=== PATIENT | female | born 1990 | race Asian ===

== ENCOUNTER 2016-12-06 12:36 | Day surgery (SDC) | payer OTHER ==
[~2016-12-06 12:36] MED LIST: ALBUTEROL0.083 % IN; CALCIUM CA PO; CLONAZEP ODT0.25 MG PEG; CLONAZEP ODT0.25 MG PO; IPRASOL5 IN; KEPPRA750 MG PO; LEVE500T5 PO; LEVETIRACET100 MG/ML PO; LORA10SY PEG; LORATADINE5 MG/5 M3 PO; LYRICA150 MG PO; PHENOBARB20 MG/5 ML PO; PHENOBARB32.4 MG PO; ROBINUL1 MG PEG; ROBINUL1 MG PO; SCOP1.5D TD
== END 2016-12-06 15:00 | disposition home or self-care (01) ==
LOC: OR 12:36
PROC: 05H433Z Insertion of Infusion Device into Left Innominate Vein, Percutaneous Approach (ICD-10-PCS; principal; 2016-12-06)
DX: Z53.8 Procedure and treatment not carried out for other reasons (principal); I87.2 Venous insufficiency (chronic) (peripheral)
CPT/HCPCS: J3490

== ENCOUNTER 2016-12-10 21:51 | Outpatient (CLI) | payer OTHER ==
[~2016-12-10] VITALS: Ht 121.9 cm; Wt 30.8 kg
[2016-12-10 13:00] VITALS: BP 111/78; TEMP 98.2
== END 2016-12-11 19:41 | disposition home or self-care (01) ==
LOC: INF 21:51
DX: R84.5 Abnormal microbiological findings in specimens from respiratory organs and thorax (principal)
CPT/HCPCS: 80170; 96365; 96375; J1580

== ENCOUNTER 2016-12-11 10:15 | Outpatient (CLI) | payer OTHER ==
[~2016-12-11] VITALS: Ht 121.9 cm; Wt 30.8 kg
[2016-12-11 10:25] VITALS: BP 155/97; TEMP 98.3
[2016-12-11 12:00] VITALS: BP 142/97; TEMP 98.3
== END 2016-12-11 12:05 | disposition home or self-care (01) ==
LOC: INF 10:15
DX: R84.5 Abnormal microbiological findings in specimens from respiratory organs and thorax (principal)
CPT/HCPCS: 96365; 96375; J1580; J1642

== ENCOUNTER 2016-12-12 10:29 | Observation (INO) | payer OTHER ==
[~2016-12-12] VITALS: Ht 114.3 cm; Wt 29.6 kg
[2016-12-12 12:00] VITALS: BP 107/65; TEMP 98.9
[2016-12-12 13:57] LABS: PLATELET COUNT 228 K/uL (152-353)
[2016-12-12 14:04] LABS: POTASSIUM 2.8 mmol/L (3.6-5.2); SODIUM 137 mmol/L (136-145)
[2016-12-12 14:08] VITALS: BP 107/65; TEMP 98.9; Ht 114.3 cm; Wt 29.6 kg
--- NOTE | 2016-12-12 14:30 | NUR ---
SPOKE WITH DR DAS REGARDING LAB RESULTS AND REINFORMED HER OF PICC LINE NOT IN PLACE. MD UPSET NOTHING DONE ON PT STATED THAT LINE WAS IN PLACE YESTERDAY. STATED TO GET SOMEONE IN THERE STAT REGARDING CHECKING LINE PLACEMENT AND ASSESS FUNCTIONALITY.
--- NOTE | 2016-12-12 15:00 | NUR ---
DARLENE POLANCO RN AND FAINA SARGENT RN TOOK TAPE AND SECURE OF LINE OFF OF R PICC. LINE OBSERVED KINKED. LINE ABLE TO FLOAT INTO VEIN EASILY WITH POSITIVE BLOOD RETURN OBTAINED. DARLENE POLANCO RN CALLED DR DAS AT BEDSIDE AND NOTIFIED HER OF PICC LINE IN PLACE WITH POSITIVE BLOOD RETURN. XRAY TO BE TAKEN TO CHECK PLACEMENT.
--- NOTE | 2016-12-12 15:20 | NUR ---
PHARMACY NOTIFIED OF [place] ORDER FOR PHARMACY TO DOSE.
[2016-12-12 16:00] VITALS: BP 107/65; TEMP 98.8
[2016-12-12 20:15] VITALS: BP 74/41; TEMP 98.4
--- NOTE | 2016-12-12 21:30 | NUR ---
RECEIVED CHEST XRAY RESULTS FOR PICC LINE PLACEMENT. XRAY RESULTS STATE THAT PICC LINE PLACEMENT NEEDS TO BE ADJUSTED.
--- NOTE | 2016-12-12 21:39 | NUR ---
DR. DAS NOTIFIED AT THIS TIME OF XRAY RESULTS FOR PICC LINE PLACEMENT CHECK
--- NOTE | 2016-12-12 21:45 | NUR ---
NOTIFIED RADIOLOGY FOR CLARIFICATION OF XRAY RESULTS
--- NOTE | 2016-12-12 22:46 | NUR ---
RADIOLOGY CALLED AND STATED THAT PICC PLACEMENT WAS OKAY FOR USE THAT PT COULD BE RESTARTED ON FLUIDS. PT STARTED BACK ON FLUIDS AT THIS TIME.
[2016-12-13 00:06] VITALS: BP 93/61; TEMP 98.1
[2016-12-13 04:00] VITALS: BP 87/46; TEMP 98
[2016-12-13 07:52] VITALS: BP 89/47; TEMP 97.9
[2016-12-13 10:30] LABS: PLATELET COUNT 209 K/uL (152-353)
[2016-12-13 10:36] LABS: POTASSIUM 3.3 mmol/L (3.6-5.2); SODIUM 137 mmol/L (136-145)
[2016-12-13 12:00] VITALS: BP 91/52; TEMP 97.6
--- NOTE | 2016-12-13 13:08 | NUR ---
MOTHER MAINTAINS PEG FEEDINGS.
--- NOTE | 2016-12-13 13:23 | NUR ---
MOTHER AT BS. NAD NOTED.
[2016-12-13 16:00] VITALS: BP 108/63; TEMP 98
--- NOTE | 2016-12-13 19:30 | NUR ---
PATIENT IS IN BED AWAKE AT THIS TIME. ASSESSMENT COMPLETED. NO ONE AT THE BEDSIDE. PICC LINE ASSESSED PATENT INFUSING FLUIDS WITH NO S/S OF INFILTRATION. BED LOCKED AND IN LOW POSITION, SIDE RAILS UP X2, CALL EU[facility]KS WITHIN REACH.
[2016-12-13 20:00] VITALS: BP 90/44; TEMP 97.9
[2016-12-14 00:28] VITALS: BP 105/59; TEMP 98.4
[2016-12-14 04:00] VITALS: BP 106/65; TEMP 97.6
[2016-12-14 08:00] VITALS: BP 129/79; TEMP 97.9
[2016-12-14 09:34] LABS: POTASSIUM 4.8 mmol/L (3.6-5.2); SODIUM 135 mmol/L (136-145)
[2016-12-14 10:41] LABS: PLATELET COUNT 229 K/uL (152-353)
[2016-12-14 12:00] VITALS: BP 129/85; TEMP 97.8
--- NOTE | 2016-12-14 12:37 | NUR ---
MOTHER MAINTAINS FEEDINGS. PT TOLERATING WELL.
[2016-12-14 16:00] VITALS: BP 132/75; TEMP 98.9
[2016-12-14 20:00] VITALS: BP 128/57; TEMP 100.3
[2016-12-15] VITALS: BP 118/64; TEMP 99.3
[2016-12-15 04:00] VITALS: BP 119/65; TEMP 98.8
[2016-12-15 08:00] VITALS: BP 134/85; TEMP 99.1
[2016-12-15 12:00] VITALS: BP 130/75; TEMP 98.8
--- NOTE | 2016-12-15 15:26 | NUR ---
1450-MOTHER GIVEN D/C INSTRUCTIONS AND SHE VERBALIZES UNDERSTANDING. PT TO BE D/C'D WHEN ABX FINISHES INFUSING.
--- NOTE | 2016-12-15 15:48 | NUR ---
PT'S FLUIDS DISCONNECTED FROM PICC LINE. PICC LINE FLUSHED WITH 10ML OF NS AND CLAMMPED. SITE STILL WRAPPED WITH DELMA. PT OUT VIA W/C PER MOTHER WITH NAD. MOTHER INSTRUCTED TO BRING PT BACK TOMORROW AROUND 1500 FOR INFUSION.
== END 2016-12-15 16:20 | disposition home or self-care (01) ==
LOC: MED/SURG 10:29
PROVIDERS: ADMIT Family Medicine
PROC: 05H533Z Insertion of Infusion Device into Right Subclavian Vein, Percutaneous Approach (ICD-10-PCS; principal; 2016-12-12)
DX: J18.8 Other pneumonia, unspecified organism (principal); R50.9 Fever, unspecified; G80.8 Other cerebral palsy; D64.89 Other specified anemias; R00.0 Tachycardia, unspecified
CPT/HCPCS: 36415; 80053; 80170; 83735; 85027; 87040; 87077; 87185; 87186; 87205; 87804; 93005; 94640; 94664; 94760; 96365; 96366; 96367; 96375; 99220; G0378; G0379; J1580; J1642; J2185

== ENCOUNTER 2016-12-21 13:39 | Outpatient (CLI) | payer OTHER | END 2016-12-21 14:05 | disposition home or self-care (01) | LOC: INF 13:39 | DX: J15.1 Pneumonia due to Pseudomonas (principal) | CPT/HCPCS: 36589; 87070 ==

== ENCOUNTER 2017-02-12 21:53 | Emergency (ER) | payer OTHER ==
[~2017-02-12] VITALS: Ht 121.9 cm; Wt 30.8 kg
[2017-02-12] MEDS ORDERED: FERR220E6 PEG (22:20)
[2017-02-12 23:26] LABS: PLATELET COUNT 274 K/uL (152-353)
[2017-02-13 00:46] VITALS: BP 120/74
[2017-02-13] MEDS ORDERED: MIRALAX3350 N1 PEG (15:53)
== END 2017-02-13 00:48 | disposition home or self-care (01) ==
LOC: ED 21:53
DX: J69.0 Pneumonitis due to inhalation of food and vomit (principal); J02.0 Streptococcal pharyngitis; R07.89 Other chest pain
CPT/HCPCS: 36415; 85027; 87040; 87804; 87880; 96365; 99284; J0696

== ENCOUNTER 2017-02-13 10:18 | Inpatient (IN) | payer OTHER ==
[~2017-02-13] VITALS: Ht 121.9 cm; Wt 31.8 kg
[~2017-02-13 10:18] MED LIST changes: +FERR220E6 PEG
[2017-02-13 11:21] VITALS: BP 119/76; TEMP 97.7; Ht 121.9 cm; Wt 31.8 kg
[2017-02-13 12:00] VITALS: BP 119/76; BP 92/56; TEMP 96.8; TEMP 97.7
[2017-02-13] MEDS ORDERED: MIRALAX3350 N1 PEG (15:53)
[2017-02-13 16:00] VITALS: BP 92/56; TEMP 96.8
[2017-02-13 16:31] LABS: PLATELET COUNT 214 K/uL (152-353)
[2017-02-13 17:04] LABS: POTASSIUM 4.9 mmol/L (3.6-5.2); SODIUM 133 mmol/L (136-145)
[2017-02-13 20:00] VITALS: BP 95/61; TEMP 97.6
[2017-02-14 00:12] VITALS: BP 126/98; TEMP 97.8
[2017-02-14 04:00] VITALS: BP 85/57; TEMP 97.6
[2017-02-14 06:47] LABS: PLATELET COUNT 178 K/uL (152-353)
[2017-02-14 07:31] LABS: POTASSIUM 3.9 mmol/L (3.6-5.2); SODIUM 132 mmol/L (136-145)
[2017-02-14 07:56] VITALS: BP 78/42; TEMP 97.8
[2017-02-14 12:00] VITALS: BP 105/50; TEMP 97.6
[2017-02-14 16:00] VITALS: BP 90/49; TEMP 97.9
[2017-02-14 20:20] VITALS: BP 128/75; TEMP 100
[2017-02-15] VITALS: BP 95/63; TEMP 97.5
[2017-02-15 04:00] VITALS: BP 87/54; TEMP 98.3
[2017-02-15 08:11] VITALS: BP 89/50; TEMP 98.7
[2017-02-15 10:08] LABS: PLATELET COUNT 195 K/uL (152-353)
[2017-02-15 10:11] LABS: POTASSIUM 4.2 mmol/L (3.6-5.2); SODIUM 138 mmol/L (136-145)
[2017-02-15 12:00] VITALS: BP 96/62; TEMP 98.6
== END 2017-02-15 13:20 | disposition home or self-care (01) | DRG 179 ==
LOC: MED/SURG 10:18
PROVIDERS: ADMIT Family Medicine
PROC: 05HM33Z Insertion of Infusion Device into Right Internal Jugular Vein, Percutaneous Approach (ICD-10-PCS; principal; 2017-02-13)
PROC: B543ZZA Ultrasonography of Right Jugular Veins, Guidance (ICD-10-PCS; 2017-02-13)
PROC: 05H533Z Insertion of Infusion Device into Right Subclavian Vein, Percutaneous Approach (ICD-10-PCS; 2017-02-14)
DX: J15.1 Pneumonia due to Pseudomonas (principal); I87.8 Other specified disorders of veins; R50.9 Fever, unspecified; J69.0 Pneumonitis due to inhalation of food and vomit; J02.0 Streptococcal pharyngitis; R07.89 Other chest pain
CPT/HCPCS: 36415; 36416; 36571; 80053; 81000; 85027; 87040; 87070; 87077; 87186; 87205; 87804; 87880; 93005; 94640; 94664; 94668; 94760; 96365; 99284; C1768; J0696

== ENCOUNTER 2017-05-18 12:30 | Outpatient (CLI) | payer OTHER ==
[~2017-05-18 12:30] MED LIST changes: +MIRALAX3350 N1 PEG
== END 2017-05-18 19:01 | disposition home or self-care (01) ==
LOC: RAD 12:30
DX: J16.8 Pneumonia due to other specified infectious organisms (principal)

== ENCOUNTER 2017-06-04 23:02 | Inpatient (IN) | payer OTHER ==
[~2017-06-04] VITALS: Ht 121.9 cm; Wt 30.5 kg
[2017-06-04 23:17] VITALS: BP 115/68; TEMP 102.5
[2017-06-05 00:14] LABS: PLATELET COUNT 299 K/uL (152-353)
[2017-06-05 01:36] VITALS: BP 101/59; TEMP 100.2; Ht 121.9 cm; Wt 30.5 kg
[2017-06-05] MEDS ORDERED: FLUTICASONE50 MCG (02:21)
[2017-06-05] MEDS ORDERED: CLON0.5T36 PO (02:22)
[2017-06-05] MEDS ORDERED: RANI75SY3 PO (02:24)
[2017-06-05 04:00] VITALS: BP 100/66; TEMP 97.8
[2017-06-05 08:00] VITALS: BP 90/51; TEMP 96.8
[2017-06-05 12:00] VITALS: BP 105/62; TEMP 97.7
[2017-06-05 12:34] LABS: PLATELET COUNT 189 K/uL (152-353)
[2017-06-05 12:47] LABS: POTASSIUM 2.9 mmol/L (3.6-5.2); SODIUM 136 mmol/L (136-145)
[2017-06-05 16:00] VITALS: BP 115/55; TEMP 97.5
[2017-06-05 20:00] VITALS: BP 91/50; TEMP 98.2
[2017-06-06] VITALS: BP 105/59; TEMP 98.3
[2017-06-06 04:00] VITALS: BP 123/70; TEMP 98.8
[2017-06-06 06:07] LABS: PLATELET COUNT 195 K/uL (152-353)
[2017-06-06 06:35] LABS: POTASSIUM 3.8 mmol/L (3.6-5.2); SODIUM 137 mmol/L (136-145)
[2017-06-06 07:54] VITALS: BP 120/71; TEMP 100.4
[2017-06-06 11:58] VITALS: BP 97/62; TEMP 99.2
[2017-06-06 15:45] VITALS: BP 107/63; TEMP 98.3
[2017-06-06 20:00] VITALS: BP 110/62; TEMP 100.1
[2017-06-07] VITALS: BP 98/55; TEMP 98.7
[2017-06-07 04:00] VITALS: BP 97/61; TEMP 98.5
[2017-06-07 05:45] LABS: PLATELET COUNT 188 K/uL (152-353)
[2017-06-07 05:52] LABS: POTASSIUM 4.2 mmol/L (3.6-5.2); SODIUM 141 mmol/L (136-145)
[2017-06-07 08:00] VITALS: BP 99/55; TEMP 97.9
== END 2017-06-07 11:10 | disposition home or self-care (01) | DRG 871 ==
LOC: ED 23:02 → MED/SURG 06-05 00:25
PROVIDERS: ADMIT Family Medicine
DX: A41.89 Other specified sepsis (principal); J18.8 Other pneumonia, unspecified organism; E46 Unspecified protein-calorie malnutrition; G40.802 Other epilepsy, not intractable, without status epilepticus; J02.0 Streptococcal pharyngitis; G80.8 Other cerebral palsy; M62.49 Contracture of muscle, multiple sites; E87.6 Hypokalemia; M41.80 Other forms of scoliosis, site unspecified
CPT/HCPCS: 36415; 36591; 80053; 83735; 85027; 87880; 94640; 94664; 94668; 94760; 96365; 99284; J0696; J1642; J3480; J3490

== ENCOUNTER 2017-06-17 13:10 | Observation (INO) | payer OTHER ==
[~2017-06-17] VITALS: Ht 121.9 cm; Wt 30.4 kg
[~2017-06-17 13:10] MED LIST changes: +CLON0.5T36 PO; +FLUTICASONE50 MCG; +RANI75SY3 PO
[2017-06-17 17:54] VITALS: BP 148/63; TEMP 98.3; Ht 121.9 cm; Wt 30.4 kg
[2017-06-17 18:24] LABS: PLATELET COUNT 306 K/uL (152-353)
[2017-06-17 18:26] LABS: POTASSIUM 3.1 mmol/L (3.6-5.2); SODIUM 138 mmol/L (136-145)
[2017-06-17] MEDS ORDERED: CLON0.5T36 PO (18:42)
[2017-06-17] MEDS ORDERED: ROBINUL1 MG PEG (18:43)
[2017-06-17] MEDS ORDERED: POLY GLYCOL PEG (18:51)
[2017-06-17 20:07] VITALS: BP 106/69; TEMP 98
[2017-06-18] VITALS: BP 111/68; TEMP 98.3
[2017-06-18 04:00] VITALS: BP 90/46; TEMP 98.1
[2017-06-18 05:21] LABS: PLATELET COUNT 276 K/uL (152-353)
[2017-06-18 05:27] LABS: POTASSIUM 3.2 mmol/L (3.6-5.2); SODIUM 133 mmol/L (136-145)
[2017-06-18 08:00] VITALS: BP 127/68; TEMP 97.1
[2017-06-18 12:00] VITALS: BP 99/59; TEMP 97.6
--- NOTE | 2017-06-18 13:00 | NUR ---
SPOKE WITH DR DAS REGARDING WOUND TO L HIP AND NEW ORDERS GIVEN.
[2017-06-18 16:00] VITALS: BP 110/64; TEMP 97.6
--- NOTE | 2017-06-18 18:30 | NUR ---
PT MOVED TO ROOM 1109 AT THIS TIME DUE TO AIR NOT WORKING IN 1108. RESP ASSISTED. NAD NOTED. FAMILY AT BS
[2017-06-18 19:47] VITALS: BP 132/78; TEMP 98.4
[2017-06-19] VITALS: BP 102/60; TEMP 97.7
[2017-06-19 04:00] VITALS: BP 117/68; TEMP 97.6
[2017-06-19 06:16] LABS: POTASSIUM 3.3 mmol/L (3.6-5.2); SODIUM 135 mmol/L (136-145)
[2017-06-19 06:37] LABS: PLATELET COUNT 270 K/uL (152-353)
[2017-06-19 08:00] VITALS: BP 96/69; TEMP 97.9
--- NOTE | 2017-06-19 14:00 | NUR ---
PORT FLUSHED WITH HEPARIN FLUSH. NEEDLE REMOVED. NO BLEED OBSERVED. PRESSURE APPLIED.
--- NOTE | 2017-06-19 14:10 | NUR ---
DISCHARGE INSTRUCTION SIGNED AND GIVEN. Pt. EXIT OUT FRONT ENTRANCE VIA W/C.
== END 2017-06-19 14:10 | disposition home or self-care (01) ==
LOC: MED/SURG 13:10
PROVIDERS: ADMIT Family Medicine
DX: J18.8 Other pneumonia, unspecified organism (principal); G80.8 Other cerebral palsy; E87.6 Hypokalemia; E83.42 Hypomagnesemia; G40.802 Other epilepsy, not intractable, without status epilepticus; D64.89 Other specified anemias; L89.211 Pressure ulcer of right hip, stage 1
CPT/HCPCS: 36591; 80048; 80053; 83735; 85027; 87040; 93005; 94640; 94664; 94668; 94760; 96365; 96366; 96367; 99220; C1726; G0378; G0379; J1642; J1956; J3475; J3480; J3490

== ENCOUNTER 2017-07-24 12:31 | Observation (INO) | payer OTHER ==
[~2017-07-24] VITALS: Ht 132.1 cm; Wt 32.9 kg
[~2017-07-24 12:31] MED LIST changes: +POLY GLYCOL PEG
[2017-07-24] MEDS ORDERED: RANI75SY3 PO (13:39)
[2017-07-24] MEDS ORDERED: MUPIROCIN2 % EX (13:42)
[2017-07-24 15:17] LABS: PLATELET COUNT 238 K/uL (152-353)
[2017-07-24 15:32] LABS: POTASSIUM 3.4 mmol/L (3.6-5.2); SODIUM 136 mmol/L (136-145)
[2017-07-24 17:03] VITALS: BP 140/92; TEMP 98.9; Ht 132.1 cm; Wt 32.9 kg
[2017-07-24 20:00] VITALS: BP 107/71; TEMP 97.6
[2017-07-25] VITALS: BP 90/55; TEMP 98
[2017-07-25 04:00] VITALS: BP 90/42; TEMP 97.5
[2017-07-25 06:25] LABS: POTASSIUM 2.5 mmol/L (3.6-5.2); SODIUM 137 mmol/L (136-145)
[2017-07-25 06:31] LABS: PLATELET COUNT 173 K/uL (152-353)
[2017-07-25 08:00] VITALS: BP 100/55; TEMP 97.6
[2017-07-25 12:00] VITALS: BP 109/70; TEMP 97.6
[2017-07-25 16:00] VITALS: BP 98/48; TEMP 98.2
[2017-07-25 19:46] VITALS: BP 113/78; TEMP 99
[2017-07-26] VITALS: BP 107/59; TEMP 99
[2017-07-26 04:00] VITALS: BP 121/75; TEMP 97.8
[2017-07-26 05:38] LABS: PLATELET COUNT 209 K/uL (152-353)
[2017-07-26 06:00] LABS: POTASSIUM 3.9 mmol/L (3.6-5.2); SODIUM 140 mmol/L (136-145)
[2017-07-26 08:24] VITALS: BP 101/54; TEMP 97.8
[2017-07-26 12:00] VITALS: BP 166/68; TEMP 99.7
== END 2017-07-26 16:00 | disposition home or self-care (01) ==
LOC: MED/SURG 12:31
PROVIDERS: ADMIT Family Medicine
DX: J15.1 Pneumonia due to Pseudomonas (principal); E86.0 Dehydration; G80.1 Spastic diplegic cerebral palsy; G91.8 Other hydrocephalus
CPT/HCPCS: 36415; 36591; 80053; 85027; 87040; 87070; 87077; 87186; 87205; 94640; 94664; 94668; 94760; 96365; 96366; 96367; 96374; 99220; G0378; G0379; J1642

== ENCOUNTER 2017-09-17 15:39 | Inpatient (IN) | payer OTHER ==
[~2017-09-17] VITALS: Ht 121.9 cm; Wt 36.8 kg
[~2017-09-17 15:39] MED LIST changes: +MUPIROCIN2 % EX
[2017-09-17 16:54] LABS: POTASSIUM 3.5 mmol/L (3.6-5.2); SODIUM 135 mmol/L (136-145)
[2017-09-17 17:02] LABS: PLATELET COUNT 233 K/uL (152-353)
[2017-09-17 17:19] VITALS: BP 95/63; TEMP 99.7; Ht 121.9 cm; Wt 36.8 kg
[2017-09-17 20:00] VITALS: BP 100/46; TEMP 98.9
[2017-09-18] VITALS: BP 102/46; TEMP 98.9
[2017-09-18] MEDS ORDERED: CLON0.5T36 PO ×2 (02:32→02:33)
[2017-09-18 04:00] VITALS: BP 116/28; TEMP 99.3
[2017-09-18 05:59] LABS: POTASSIUM 3.6 mmol/L (3.6-5.2); SODIUM 135 mmol/L (136-145)
[2017-09-18 06:13] LABS: PLATELET COUNT 221 K/uL (152-353)
[2017-09-18 08:19] VITALS: BP 106/68; TEMP 97.6
[2017-09-18 11:43] VITALS: BP 111/76; TEMP 98.3
[2017-09-18 16:00] VITALS: BP 90/54; TEMP 100.1
[2017-09-18 20:00] VITALS: BP 120/53; TEMP 100.5
[2017-09-19] VITALS: BP 151/83; TEMP 100.1
[2017-09-19 04:00] VITALS: BP 105/55; TEMP 99
[2017-09-19 06:59] LABS: POTASSIUM 3.3 mmol/L (3.6-5.2); SODIUM 139 mmol/L (136-145)
[2017-09-19 08:00] VITALS: BP 105/53; TEMP 98.5
[2017-09-19 08:36] LABS: PLATELET COUNT 210 K/uL (152-353)
[2017-09-19 12:00] VITALS: BP 108/52; TEMP 98.7
[2017-09-19 16:00] VITALS: BP 103/43; TEMP 98
[2017-09-19 20:00] VITALS: BP 112/59; TEMP 98.4
[2017-09-20] VITALS: BP 120/75; TEMP 98.9
[2017-09-20 04:00] VITALS: BP 104/69; TEMP 97.6
[2017-09-20 07:36] LABS: POTASSIUM 3.6 mmol/L (3.6-5.2); SODIUM 137 mmol/L (136-145)
[2017-09-20 08:00] VITALS: BP 109/70; TEMP 97.2
[2017-09-20 08:39] LABS: PLATELET COUNT 187 K/uL (152-353)
[2017-09-20 12:00] VITALS: BP 101/65; TEMP 97.6
[2017-09-20 16:00] VITALS: BP 132/72; TEMP 98.1
[2017-09-20 20:00] VITALS: BP 112/76; TEMP 98.7
[2017-09-21] VITALS: BP 112/76; TEMP 98.7
[2017-09-21 04:00] VITALS: BP 149/96; TEMP 99
[2017-09-21 05:45] LABS: PLATELET COUNT 220 K/uL (152-353)
[2017-09-21 05:52] LABS: POTASSIUM 3.6 mmol/L (3.6-5.2); SODIUM 136 mmol/L (136-145)
[2017-09-21 08:00] VITALS: BP 99/49; TEMP 98.3
[2017-09-21 12:00] VITALS: BP 122/40; TEMP 98
== END 2017-09-21 17:40 | disposition home or self-care (01) | DRG 194 ==
LOC: MED/SURG 15:39
PROVIDERS: ADMIT Family Medicine
DX: J18.0 Bronchopneumonia, unspecified organism (principal); G40.802 Other epilepsy, not intractable, without status epilepticus; J20.9 Acute bronchitis, unspecified; G80.8 Other cerebral palsy; E86.0 Dehydration
CPT/HCPCS: 36415; 36591; 80053; 85027; 87040; 87070; 87077; 87185; 87186; 87205; 93005; 94640; 94664; 94668; 94760; 96365; 96366; 96367; J1642

== ENCOUNTER 2017-10-23 09:45 | Inpatient (IN) | payer OTHER ==
[~2017-10-23] VITALS: Ht 121.9 cm; Wt 32.4 kg
[2017-10-23 15:35] LABS: POTASSIUM 3.7 mmol/L (3.6-5.2)
[2017-10-23 15:39] LABS: PLATELET COUNT 202 K/uL (152-353)
[2017-10-23 20:00] VITALS: BP 96/61; TEMP 98.3
[2017-10-24] VITALS: BP 94/43; TEMP 101.9
[2017-10-24 04:00] VITALS: BP 114/66; TEMP 99.9
[2017-10-24 08:00] VITALS: BP 92/61; TEMP 99.5
[2017-10-24 11:42] LABS: PLATELET COUNT 192 K/uL (152-353)
[2017-10-24 11:54] VITALS: BP 114/76; TEMP 99.8
[2017-10-24 12:01] LABS: POTASSIUM 3.5 mmol/L (3.6-5.2)
[2017-10-24 15:54] VITALS: BP 121/81; TEMP 100.2
[2017-10-24 20:00] VITALS: BP 95/42; TEMP 98.7
[2017-10-25] VITALS: BP 95/60; TEMP 98
[2017-10-25 04:00] VITALS: BP 147/76; TEMP 97.3
[2017-10-25 08:00] VITALS: BP 123/83; TEMP 97.8
[2017-10-25 08:10] LABS: PLATELET COUNT 156 K/uL (152-353)
[2017-10-25 08:15] LABS: POTASSIUM 3.5 mmol/L (3.6-5.2)
--- NOTE | 2017-10-25 09:00 | NUR ---
PT VOIDED. GIVEN BATH. MEDS GIVEN VIA PEGTUBE. HOB UP
[2017-10-25 12:00] VITALS: BP 94/64; TEMP 98.5
--- NOTE | 2017-10-25 12:29 | NUR ---
MOM AT BS
--- NOTE | 2017-10-25 12:31 | NUR ---
FEEDING PUMP INFUSING @65ML/HR
--- NOTE | 2017-10-25 15:49 | NUR ---
PATIENT BEING FEED NOW SO I HELD CPT DO TO THAT.
[2017-10-25 16:00] VITALS: BP 99/60; TEMP 98.3
--- NOTE | 2017-10-25 17:35 | NUR ---
HOB UP. EYES OPEN. AROUND TRACH CLEANED. NO FAMILY IN ROOM AT THIS TIME
[2017-10-25 19:52] VITALS: BP 91/55; TEMP 99.3
[2017-10-26] VITALS: BP 115/76; TEMP 99.7
[2017-10-26 04:00] VITALS: BP 109/65; TEMP 100.2
[2017-10-26 05:40] LABS: PLATELET COUNT 184 K/uL (152-353)
[2017-10-26 08:00] VITALS: BP 110/40; TEMP 99.1
[2017-10-26 12:00] VITALS: BP 137/68; TEMP 99.1
[2017-10-26 16:00] VITALS: BP 138/74; TEMP 98.7
[2017-10-26 20:00] VITALS: BP 121/79; TEMP 99.6
[2017-10-27] VITALS (9 sets, daily range): BP systolic 76–129; BP diastolic 32–85; TEMP 97.2–97.9
--- NOTE | 2017-10-27 08:30 | NUR ---
ENTERED ROOM WITH RESPIRATORY, PATIENT IS VERY LETHARGIC WITH DECREASED RESPOSIVENESS. RESPIRATIONS ARE SHALLOW. BP 72/28, HEART RATE 50'S. O2SAT 100%. ATTEMPTED TO ROUSE AND STIMULATE PATIENT. RT PLACED PATIENT ON BREATHING TREATMENT AND SMART VEST. DR. DAS NOTIFIED.
--- NOTE | 2017-10-27 08:53 | NUR ---
CAME INTO PT ROOM TO GIVE TX. SHE WAS NOT HER NORMAL RESPONSIVE SELF,NOTIFIES NURSE. WE RECHECKED HER VITALS. BP WAS DOWN AND SPO2 BUT SPO2 CAME UP ANDIS NORMAL. NURSE NOTIFIED DR. DAS. 0801 SHE IS COMING AROUND MORE. STARTING TO BE MORE RESPONSIVE. WILL CONTINUE TO MONITOR.
--- NOTE | 2017-10-27 09:30 | NUR ---
AFTER STIMULATION AND CLOSE MONITORING AT THE BEDSIDE PATIENT IS MORE ALERT. RESPIRATIONS ARE LESS LABORED, BP 88/40 AT THIS TIME. MOTHER AT BEDSIDE. SHE STATES SHE HAS EPISODES LIKE THIS AT HOME TOO. SHE IS GOING TO GIVE HER A BATH AND CONTINUE TO STIMULATE HER.
[2017-10-27 09:41] LABS: PLATELET COUNT 165 K/uL (152-353)
[2017-10-27 09:58] LABS: POTASSIUM 3.5 mmol/L (3.6-5.2)
--- NOTE | 2017-10-27 13:00 | NUR ---
PATIENT CONTINUES TO DO WELL. PATIENT STATUS AND VITAL SIGNS REPORTED TO DR. DAS. DISCHARGE ORDERS AND INSTRUCTIONS RECEIVED.
--- NOTE | 2017-10-27 13:30 | NUR ---
REVIEWED ALL DISCHARGE INSTRUCTIONS WITH PATIENT'S MOTHER. PAC FLUSHED WITH HEPARIN AND TMZ NEEDLE REMOVED, DRESSING APPLIED. MOTHER SHOWED WHAT 45 DEGREES LOOKS LIKE ON OUR HOSPITAL BED AND INSTRUCTED TO KEEP PATIENT AT 45 DEGREES AT HOME. PATIENT'S MOTHER VERBALIZES UNDERSTANDING OF ALL INSTRUCTIONS.
--- NOTE | 2017-10-27 14:00 | NUR ---
PATIENT ESCORTED TO HOSPITAL EXIT VIA HER PERSONAL WHEELCHAIR AND DISCHARGE HOME WITH HER MOTHER IN STABLE CONDITION.
[2018-02-04] MEDS ORDERED: FERR220E6 PO (18:20)
[2018-02-05] MEDS ORDERED: TRANSDERM-SC1.5 MG TD (11:43)
== END 2017-10-27 14:15 | disposition home or self-care (01) | DRG 177 ==
LOC: MED/SURG 09:45
PROVIDERS: ADMIT Family Medicine
DX: J15.1 Pneumonia due to Pseudomonas (principal); G82.50 Quadriplegia, unspecified; E86.0 Dehydration; G80.8 Other cerebral palsy
CPT/HCPCS: 36415; 36591; 80048; 80053; 85027; 87040; 87070; 87077; 87185; 87186; 87205; 87804; 93005; 94640; 94664; 94668; 94760; J0456; J0696; J1642

== ENCOUNTER 2017-10-29 17:10 | Outpatient (CLI) | payer OTHER ==
[2018-02-04] MEDS ORDERED: FERR220E6 PO (18:20)
[2018-02-05] MEDS ORDERED: TRANSDERM-SC1.5 MG TD (11:43)
== END 2017-10-29 19:09 | disposition home or self-care (01) ==
LOC: ED 17:10
DX: R33.8 Other retention of urine (principal)
CPT/HCPCS: 81000

== ENCOUNTER 2017-10-31 16:19 | Emergency (ER) | payer OTHER ==
[~2017-10-31] VITALS: Ht 116.8 cm; Wt 31.3 kg
[2017-10-31 17:55] VITALS: BP 118/82; TEMP 98.1
[2018-02-04] MEDS ORDERED: FERR220E6 PO (18:20)
[2018-02-05] MEDS ORDERED: TRANSDERM-SC1.5 MG TD (11:43)
== END 2017-10-31 17:55 | disposition home or self-care (01) ==
LOC: ED 16:19
PROC: 0T9B70Z Drainage of Bladder with Drainage Device, Via Natural or Artificial Opening (ICD-10-PCS; principal; 2017-10-31)
DX: N13.8 Other obstructive and reflux uropathy (principal)
CPT/HCPCS: 51702; 99282

== ENCOUNTER 2018-05-22 10:05 | Outpatient (CLI) | payer OTHER ==
[~2018-05-22 10:05] MED LIST changes: +FERR220E6 PO; +TRANSDERM-SC1.5 MG TD
== END 2018-05-22 21:15 | disposition home or self-care (01) ==
LOC: LAB 10:05
DX: J18.9 Pneumonia, unspecified organism (principal)
CPT/HCPCS: 87070; 87077; 87186; 87205

== ENCOUNTER 2018-05-31 12:19 | Outpatient (CLI) | payer OTHER ==
[2018-05-31 13:06] LABS: PLATELET COUNT 289 K/uL (152-353)
[2018-05-31 13:16] LABS: POTASSIUM 3.5 mmol/L (3.6-5.2)
== END 2018-05-31 19:34 | disposition home or self-care (01) ==
LOC: LABW 12:19
PROVIDERS: Family Medicine
DX: J16.8 Pneumonia due to other specified infectious organisms (principal); R50.81 Fever presenting with conditions classified elsewhere; R50.9 Fever, unspecified; J18.9 Pneumonia, unspecified organism
CPT/HCPCS: 36415; 80053; 85027; 87040; 87070; 87077; 87186; 87205; 94664

== ENCOUNTER 2018-07-02 11:28 | Inpatient (IN) | payer OTHER ==
[~2018-07-02] VITALS: Ht 121.9 cm; Wt 28.3 kg
[2018-07-02 14:29] LABS: PLATELET COUNT 193 K/uL (152-353)
[2018-07-02 14:40] LABS: POTASSIUM 2.9 mmol/L (3.6-5.2)
[2018-07-02 15:01] VITALS: BP 98/64; TEMP 98.8; Ht 121.9 cm; Wt 28.3 kg
[2018-07-02 16:11] VITALS: BP 89/56; TEMP 98.2
[2018-07-02] MEDS ORDERED: CLON0.5T36 PO ×2 (17:20→17:21)
[2018-07-02 20:00] VITALS: BP 118/85; TEMP 98.6
[2018-07-03 00:10] VITALS: BP 102/66; TEMP 99.6
[2018-07-03 04:00] VITALS: BP 103/71; TEMP 100.5
[2018-07-03 05:59] LABS: PLATELET COUNT 179 K/uL (152-353)
[2018-07-03 08:00] VITALS: BP 107/68; TEMP 98.4
[2018-07-03 13:01] VITALS: BP 100/54; TEMP 98.7
--- NOTE | 2018-07-03 13:30 | NUR ---
CRITICAL LAB (1 POS BLOOD CULTURE) CALLED TO DR. DAS.
[2018-07-03 15:27] LABS: POTASSIUM 3.4 mmol/L (3.6-5.2)
[2018-07-03 16:10] VITALS: BP 122/76; TEMP 97.5
[2018-07-03 20:00] VITALS: BP 103/68; TEMP 100.8
[2018-07-04] VITALS: BP 96/60; TEMP 99.9
[2018-07-04 04:00] VITALS: BP 105/72; TEMP 98
[2018-07-04 08:16] VITALS: BP 100/55; BP 90/50; TEMP 98.7
[2018-07-04 08:53] LABS: POTASSIUM 3.8 mmol/L (3.6-5.2)
[2018-07-04 09:03] LABS: PLATELET COUNT 171 K/uL (152-353)
[2018-07-04 12:00] VITALS: BP 102/65; TEMP 97.8
[2018-07-04 16:00] VITALS: BP 110/60; TEMP 97.4
[2018-07-04 20:27] VITALS: BP 126/77; TEMP 98.6
[2018-07-05 00:18] VITALS: BP 123/76; TEMP 98.7
[2018-07-05 04:10] VITALS: BP 103/66; TEMP 98.1
[2018-07-05 08:00] VITALS: BP 102/70; TEMP 97.2
[2018-07-05 12:00] VITALS: BP 100/62; TEMP 98.4
== END 2018-07-05 13:15 | disposition home or self-care (01) | DRG 178 ==
LOC: MED/SURG 11:28
PROVIDERS: ADMIT Family Medicine
DX: J15.6 Pneumonia due to other Gram-negative bacteria (principal); G40.802 Other epilepsy, not intractable, without status epilepticus; G91.9 Hydrocephalus, unspecified; E86.0 Dehydration; R53.81 Other malaise
CPT/HCPCS: 36591; 36600; 80048; 80053; 82805; 85027; 87040; 87070; 87077; 87185; 87186; 87205; 90732; 93005; 94640; 94664; 94668; 94760; 96365; 96366; 96367; J0456; J0696

== ENCOUNTER 2018-10-29 11:30 | Inpatient (IN) | payer OTHER ==
[~2018-10-29] VITALS: Ht 121.9 cm; Wt 37.7 kg
[2018-10-29 12:38] LABS: PLATELET COUNT 216 K/uL (152-353)
[2018-10-29 12:49] LABS: POTASSIUM 3.4 mmol/L (3.6-5.2)
[2018-10-29 12:57] VITALS: BP 98/49; TEMP 97.8; Ht 121.9 cm; Wt 37.7 kg
[2018-10-29 16:02] VITALS: BP 99/59; TEMP 100.8
[2018-10-29 20:00] VITALS: BP 98/50; TEMP 100
[2018-10-30 00:01] VITALS: BP 88/42; TEMP 99.1
[2018-10-30 04:22] VITALS: BP 100/54; TEMP 98.4
[2018-10-30 07:40] VITALS: BP 80/45; TEMP 94.2
[2018-10-30 12:00] VITALS: BP 81/39; TEMP 98.6
[2018-10-30 16:00] VITALS: BP 98/67; TEMP 98.8
[2018-10-30 19:57] LABS: POTASSIUM 3.5 mmol/L (3.6-5.2)
[2018-10-30 20:16] VITALS: BP 110/62; TEMP 98.6
[2018-10-30 20:47] LABS: PLATELET COUNT 178 K/uL (152-353)
[2018-10-31] VITALS: BP 122/82; TEMP 98.8
[2018-10-31 04:00] VITALS: BP 100/45; TEMP 98.8
[2018-10-31 08:05] VITALS: BP 126/73; TEMP 98
[2018-10-31 12:05] VITALS: BP 97/50; TEMP 98.9
[2018-10-31 16:00] VITALS: BP 100/55; TEMP 99.1
[2018-10-31 20:00] VITALS: BP 99/47; TEMP 99.4
[2018-11-01] VITALS: BP 103/48; TEMP 98.8
[2018-11-01 04:00] VITALS: BP 97/46; TEMP 97.8
[2018-11-01 08:00] VITALS: BP 88/49; TEMP 98.2
[2018-11-01 12:00] VITALS: BP 95/41; TEMP 98.2
[2018-11-01 16:02] VITALS: BP 108/43; TEMP 98.9
[2018-11-01 19:50] VITALS: BP 109/61; TEMP 99.9
[2018-11-02] VITALS: BP 92/53; TEMP 98.9
[2018-11-02 03:47] VITALS: BP 90/40; TEMP 98.9
[2018-11-02 06:11] LABS: PLATELET COUNT 191 K/uL (152-353)
[2018-11-02 06:22] LABS: POTASSIUM 4.3 mmol/L (3.6-5.2)
[2018-11-02 08:00] VITALS: BP 101/59; TEMP 99.4
[2018-11-02 12:02] VITALS: BP 96/51; TEMP 98.4
[2018-11-02 16:00] VITALS: BP 83/46; TEMP 97.1
[2018-11-02 19:49] VITALS: BP 144/72; TEMP 98.2
[2018-11-03] VITALS: BP 85/32; TEMP 97.9
[2018-11-03 04:00] VITALS: BP 87/38; TEMP 98
[2018-11-03 08:00] VITALS: BP 104/50; TEMP 98.4
[2018-11-03 11:21] VITALS: BP 96/49; TEMP 98.1
[2018-11-03 16:00] VITALS: BP 98/71; TEMP 98.8
[2018-11-03 20:00] VITALS: BP 95/55; TEMP 99.4
[2018-11-03 22:42] LABS: POTASSIUM 3.9 mmol/L (3.6-5.2)
[2018-11-03 22:56] LABS: PLATELET COUNT 205 K/uL (152-353)
[2018-11-04] VITALS: BP 85/40; TEMP 98.2
[2018-11-04 04:00] VITALS: BP 88/63; TEMP 98.3
[2018-11-04 07:53] VITALS: BP 107/71; TEMP 98.9
[2018-11-04 11:51] VITALS: BP 91/45; TEMP 98.4
[2018-11-04 15:56] VITALS: BP 89/41; TEMP 98.2
== END 2018-11-04 20:10 | disposition home or self-care (01) | DRG 178 ==
LOC: MED/SURG 11:30
PROVIDERS: ADMIT Family Medicine
DX: J15.1 Pneumonia due to Pseudomonas (principal); G40.802 Other epilepsy, not intractable, without status epilepticus; R04.2 Hemoptysis; G80.8 Other cerebral palsy; G62.89 Other specified polyneuropathies; K21.9 Gastro-esophageal reflux disease without esophagitis; M41.80 Other forms of scoliosis, site unspecified; H54.7 Unspecified visual loss; E86.0 Dehydration
CPT/HCPCS: 36591; 80053; 81000; 82542; 83605; 83735; 84100; 85027; 87040; 87070; 87077; 87186; 87205; 87899; 93005; 94640; 94664; 94668; 94760; 96367; 96375; J0456; J0696; J0713; J1642; J2930

== ENCOUNTER 2018-11-05 12:06 | Outpatient (CLI) | payer OTHER | END 2018-11-05 12:12 | disposition short-term general hospital (02) | LOC: AMB 12:06 | DX: T82.898A Other specified complication of vascular prosthetic devices, implants and grafts, initial encounter (principal) | CPT/HCPCS: A0425; A0429 ==

== ENCOUNTER 2018-11-05 12:13 | Inpatient (IN) | payer OTHER ==
[~2018-11-05] VITALS: Ht 121.9 cm; Wt 35.6 kg
[2018-11-05 12:15] VITALS: BP 102/51; TEMP 97.9
[2018-11-05 13:35] LABS: PLATELET COUNT 118 K/uL (152-353)
[2018-11-05 13:46] LABS: POTASSIUM 4.2 mmol/L (3.6-5.2)
[2018-11-05 14:00] VITALS: BP 117/69
[2018-11-05 20:00] VITALS: BP 96/51; TEMP 98.5
[2018-11-05 20:22] VITALS: BP 128/78; TEMP 98.8; Ht 121.9 cm; Wt 35.6 kg
[2018-11-06 08:24] VITALS: BP 89/54; TEMP 98.1
[2018-11-06 20:00] VITALS: BP 113/73; TEMP 99.3
[2018-11-07 08:11] VITALS: BP 82/52; TEMP 98.3
[2018-11-07 20:23] VITALS: BP 109/73; TEMP 99.4
[2018-11-08 08:00] VITALS: BP 119/75; TEMP 99
[2018-11-08 20:00] VITALS: BP 120/78; TEMP 98.7
[2018-11-09 08:00] VITALS: BP 126/88; TEMP 98.1
[2018-11-09 20:00] VITALS: BP 113/52; TEMP 98.9
[2018-11-10 08:00] VITALS: BP 90/50; TEMP 98.4
[2018-11-10 20:00] VITALS: BP 108/75; TEMP 100.2
[2018-11-11 07:15] VITALS: BP 121/69; TEMP 98.7
[2018-11-11 20:00] VITALS: BP 131/81; TEMP 100
[2018-11-12 20:23] VITALS: BP 93/50; TEMP 98.8
[2018-11-13 20:00] VITALS: BP 119/68; TEMP 98.5
[2018-11-14 08:00] VITALS: BP 92/58; TEMP 98.1
[2018-11-14 20:00] VITALS: BP 128/69; TEMP 99.8
[2018-11-15 08:00] VITALS: BP 129/77; TEMP 98.1
[2018-11-15 20:00] VITALS: BP 117/74; TEMP 99.3
[2018-11-16 20:00] VITALS: BP 106/73; TEMP 98.3
[2018-11-17 08:03] VITALS: BP 121/81; TEMP 97.8
== END 2018-11-17 19:45 | disposition home or self-care (01) | DRG 179 ==
LOC: ED 12:13 → MED/SURG 12:38
PROVIDERS: Emergency Medicine; ADMIT Family Medicine
DX: J15.1 Pneumonia due to Pseudomonas (principal)
CPT/HCPCS: 36415; 80053; 85027; 87070; 87077; 87186; 87205; 94640; 94664; 94668; 94760; 99283; J0713; J1642

== ENCOUNTER 2018-11-25 16:16 | Outpatient (CLI) | payer OTHER | END 2018-11-25 23:07 | disposition home or self-care (01) | LOC: RESP 16:16 | DX: J16.8 Pneumonia due to other specified infectious organisms (principal); B96.5 Pseudomonas (aeruginosa) (mallei) (pseudomallei) as the cause of diseases classified elsewhere | CPT/HCPCS: 87070; 87077; 87186; 87205; 94664 ==

== ENCOUNTER 2019-03-08 14:18 | Emergency (ER) | payer OTHER ==
[~2019-03-08] VITALS: Ht 121.9 cm; Wt 35.4 kg
[2019-03-08 15:52] LABS: PLATELET COUNT 247 K/uL (152-353)
[2019-03-08 16:09] LABS: POTASSIUM 3.7 mmol/L (3.6-5.2)
[2019-03-08 17:19] VITALS: BP 115/67; TEMP 100.6
== END 2019-03-08 17:26 | disposition home or self-care (01) ==
LOC: ED 14:18
PROVIDERS: Family Medicine
DX: J18.9 Pneumonia, unspecified organism (principal); Z93.0 Tracheostomy status
CPT/HCPCS: 36591; 80053; 85027; 96365; 99284; J0696; J1642

== ENCOUNTER 2019-04-10 10:13 | Outpatient (CLI) | payer OTHER | END 2019-04-10 20:41 | disposition home or self-care (01) | LOC: LABW 10:13 | DX: J98.01 Acute bronchospasm (principal) | CPT/HCPCS: 36415; 87040; 87070; 87077; 87101; 87185; 87186; 87205 ==

== ENCOUNTER 2019-06-04 10:45 | Outpatient (CLI) | payer OTHER | END 2019-06-04 22:30 | disposition home or self-care (01) | LOC: RAD 10:45 | DX: J41.1 Mucopurulent chronic bronchitis (principal) | CPT/HCPCS: 87070; 87077; 87186; 87205 ==

== ENCOUNTER 2019-09-30 12:08 | Inpatient (IN) | payer OTHER ==
[~2019-09-30] VITALS: Ht 121.9 cm; Wt 34.6 kg
[2019-09-30 12:20] VITALS: BP 85/31; TEMP 97.9
[2019-09-30 13:29] LABS: PLATELET COUNT 188 K/uL (152-353)
[2019-09-30 13:35] LABS: POTASSIUM 3.4 mmol/L (3.6-5.2)
[2019-09-30 16:18] VITALS: BP 81/41; TEMP 97.5; Ht 121.9 cm; Wt 34.6 kg
[2019-09-30 20:00] VITALS: BP 91/59; TEMP 98.6
[2019-10-01] VITALS: BP 118/58; TEMP 98.9
[2019-10-01 04:00] VITALS: BP 125/56; TEMP 97.5
[2019-10-01 06:23] LABS: PLATELET COUNT 153 K/uL (152-353)
[2019-10-01 06:27] LABS: POTASSIUM 3.5 mmol/L (3.6-5.2)
[2019-10-01 08:00] VITALS: BP 115/55; TEMP 98.7
[2019-10-01 12:00] VITALS: BP 102/65; TEMP 97.5
[2019-10-01 16:00] VITALS: BP 106/76; TEMP 98.6
[2019-10-02 00:18] VITALS: BP 90/41; TEMP 98.8
[2019-10-02 04:02] VITALS: BP 88/50; TEMP 97.9
[2019-10-02 08:00] VITALS: BP 84/47; TEMP 98.1
[2019-10-02 08:07] LABS: PLATELET COUNT 146 K/uL (152-353)
[2019-10-02 08:08] LABS: POTASSIUM 4.2 mmol/L (3.6-5.2)
== END 2019-10-02 13:35 | disposition home or self-care (01) | DRG 871 ==
LOC: ED 12:08 → MED/SURG 13:40
PROVIDERS: Family Medicine; ADMIT Emergency Medicine
PROC: 06HM33Z Insertion of Infusion Device into Right Femoral Vein, Percutaneous Approach (ICD-10-PCS; principal; 2019-10-01)
PROC: B54BZZA Ultrasonography of Right Lower Extremity Veins, Guidance (ICD-10-PCS; 2019-10-01)
DX: A41.89 Other specified sepsis (principal); J69.0 Pneumonitis due to inhalation of food and vomit; E87.6 Hypokalemia; K21.9 Gastro-esophageal reflux disease without esophagitis; M41.80 Other forms of scoliosis, site unspecified; G80.8 Other cerebral palsy; M62.48 Contracture of muscle, other site; E86.0 Dehydration; R62.7 Adult failure to thrive; Z93.0 Tracheostomy status; Z93.1 Gastrostomy status; I87.8 Other specified disorders of veins
CPT/HCPCS: 36415; 80053; 81000; 81025; 83605; 85007; 85027; 87040; 87077; 87185; 87186; 87205; 87502; 87651; 93005; 94640; 94664; 94668; 94760; 96365; 96366; 96375; 99284; C1768; J0456; J0696; J2930

== ENCOUNTER 2019-10-05 16:15 | Outpatient (CLI) | payer OTHER | END 2019-10-05 21:34 | disposition home or self-care (01) | LOC: LAB 16:15 | PROVIDERS: Nurse Practitioner Family | DX: J15.9 Unspecified bacterial pneumonia (principal) | CPT/HCPCS: 36415; 80053; 83605 ==

== ENCOUNTER 2019-12-24 16:09 | Outpatient (CLI) | payer OTHER ==
[2019-12-24 17:42] LABS: POTASSIUM 3.9 mmol/L (3.6-5.2)
[2019-12-24 17:45] LABS: PLATELET COUNT 82 K/uL (152-353)
== END 2019-12-24 19:05 | disposition home or self-care (01) ==
LOC: RAD 16:09
PROVIDERS: Family Medicine
DX: R56.9 Unspecified convulsions (principal); R05 Cough
CPT/HCPCS: 36415; 80053; 82542; 85007; 85027; 87040

== ENCOUNTER 2019-12-25 07:48 | Outpatient (CLI) | payer OTHER | END 2019-12-25 19:25 | disposition home or self-care (01) | LOC: LAB 07:48 | DX: R05 Cough (principal); R56.9 Unspecified convulsions | CPT/HCPCS: 87070; 87077; 87186; 87205 ==

== ENCOUNTER 2020-01-11 14:38 | Outpatient (CLI) | payer OTHER | END 2020-01-11 19:18 | disposition home or self-care (01) | LOC: RAD 14:38 | DX: R05 Cough (principal) ==

== ENCOUNTER 2020-01-12 11:11 | Outpatient (CLI) | payer OTHER | END 2020-01-12 19:13 | disposition home or self-care (01) | LOC: RAD 11:11 | DX: R05 Cough (principal) ==